=== PATIENT | male | born 1940 | race Caucasian/White ===

== ENCOUNTER 2017-08-07 14:08 | Emergency (ER) | payer MEDICARE ==
[~2017-08-07] VITALS: Ht 175.3 cm; Wt 109.0 kg
[2017-08-07] MEDS ORDERED: SODIUM CHLORIDE 0.9% 1,000 ML IV ONE (14:32)
[2017-08-07] MEDS ORDERED: ONDANSETRON 2MG/ML, 2ML IVPush ONE (15:00)
[2017-08-07] MEDS ORDERED: SODIUM CHLORIDE 0.9% 1,000ML IVBOLUS ONE (15:00)
[2017-08-07] MEDS ORDERED: MORPHINE SULFATE 4 MG/ML, 1ML IVPush PRN (15:00)
[2017-08-07] MEDS ORDERED: MORPHINE SULFATE 4 MG/ML, 1ML ONE (15:02)
[2017-08-07] MEDS ORDERED: ONDANSETRON 2MG/ML, 2ML ONE (15:02)
[2017-08-07] MEDS ORDERED: INSU100C5 SQ-INSULIN (15:31)
[2017-08-07] MEDS ORDERED: RIVA10TA PO (15:31)
[2017-08-07] MEDS ORDERED: DILT30TA33 PO (15:32)
[2017-08-07] MEDS ORDERED: FURO20TA3 PO ×2 (15:32→15:36)
[2017-08-07] MEDS ORDERED: VALS40TA2 PO (15:32)
[2017-08-07] MEDS ORDERED: CHOL2000 PO (15:33)
[2017-08-07] MEDS ORDERED: [UNRECOGNIZED DRUG - CODE] EXT (15:33)
[2017-08-07] MEDS ORDERED: LATA2.5D3 EACHEYE (15:34)
[2017-08-07] MEDS ORDERED: ATOR-2 PO (15:34)
[2017-08-07] MEDS ORDERED: METF500T4 PO (15:34)
[2017-08-07] MEDS ORDERED: INSU100I28 INJ (15:35)
[2017-08-07] MEDS ORDERED: PSYL0.5215 PO (15:36)
[2017-08-07] MEDS ORDERED: CEFD125S3 PO (15:37)
[2017-08-07] MEDS ORDERED: SAXA2.5T PO (15:37)
[2017-08-07] MEDS ORDERED: CARV3.122 PO (15:37)
[2017-08-07 15:47] LABS: BASOPHILS % (AUTO) 0 % (0-1); EOSINOPHILS # (AUTO) 0.27 x10^3/uL (0-0.4); EOSINOPHILS % (AUTO) 2 % (1-7); LYMPHOCYTES # (AUTO) 0.86 x10^3/uL (1-3.4); LYMPHOCYTES % (AUTO) 7 % (22-44); MD NO; MEAN CORPUSCULAR HEMOGLOBIN 28.2 pg (27.5-34.5); MEAN CORPUSCULAR HGB CONC 33.2 g/dL (33.2-36.2); MEAN CORPUSCULAR VOLUME 85.1 fL (81-97); MEAN PLATELET VOLUME 8.9 fL (7.4-10.4); MONOCYTES # (AUTO) 0.55 x10^3/uL (0.2-0.8); MONOCYTES % (AUTO) 5 % (2-9); NEUTROPHILS % (AUTO) 86 % (42-75); PLATELET COUNT 219 x10^3/uL (130-400); RED BLOOD COUNT 5.53 x10^6/uL (4.38-5.82); RED CELL DISTRIBUTION WIDTH 16.3 % (9.4-14.8)
[2017-08-07 15:58] LABS: ALANINE AMINOTRANSFERASE 21 U/L (12-78); ALBUMIN 3.4 g/dL (3.4-5.0); ANION GAP 7 mmol/L (5-15); CALCIUM 8.9 mg/dL (8.5-10.1); CHLORIDE 104 mmol/L (98-107); CREATININE 1.36 mg/dL (0.7-1.3)
[2017-08-07 16:00] LABS: ALKALINE PHOSPHATASE 125 U/L (45-117); TOTAL PROTEIN 7.8 g/dL (6.4-8.2)
[2017-08-07 16:02] LABS: MICROSCOPIC INDICATED
[2017-08-07 16:11] LABS: CULTURE INDICATED? YES
[2017-08-07] MEDS ORDERED: OMNIPAQUE 350 MG/ML, 100ML BOTTLE ONE (16:42)
[2017-08-07] MEDS ORDERED: ENALAPRILAT 1.25 MG/ML, 2ML ONE (17:16)
[2017-08-07] MEDS ORDERED: CEFTRIAXONE PMX 1GM/50ML 50 ML ONE (17:17)
[2017-08-07] MEDS ORDERED: CEFTRIAXONE PMX 1GM/50ML 50 ML IV ONE (17:30)
[2017-08-07] MEDS ORDERED: ENALAPRILAT 1.25 MG/ML, 2ML IV ONE (17:30)
[2017-08-07 18:32] VITALS: BP 159/78
== END 2017-08-07 18:45 | disposition home or self-care (01) ==
LOC: ED 18:15
DX: N20.0 Calculus of kidney (principal); E11.9 Type 2 diabetes mellitus without complications; E78.00 Pure hypercholesterolemia, unspecified; I10 Essential (primary) hypertension; I21.9 Acute myocardial infarction, unspecified; N10 Acute pyelonephritis
CPT/HCPCS: 36415; 74021; 74177; 80053; 81001; 83690; 85025; 87086; 96361; 96365; 96375; 99285; J0696; J2405; J7030; Q9967